=== PATIENT | female | born 1965 | race Caucasian/White ===

== ENCOUNTER 2017-06-19 15:44 | Emergency (ER) | payer OTHER ==
[2017-06-19 15:50] VITALS: BP 132/78; PULSE 67; TEMP 97.8; BMI 24.0
[2017-06-19] MEDS ORDERED: LIDOCAINE HCL 1%, 10 MG/ML (20ML VIAL) ONE (16:35)
[2017-06-19] MEDS ORDERED: DIPHTH,PERTUSS(ACELL),TET 0.5 ML DISP.SYRIN IM ONE (16:54)
--- NOTE | 2017-06-19 16:55 | PDOC ---
History of Present Illness - General History Source: Patient Exam Limitations: No Limitations - History of Present Illness Initial Comments: 06/19/17 17:03 The patient is a 52 year old female, with a significant past medical history of black mold exposure (patient reports she is currently following with a neurologist), who presents to the emergency department with, a laceration on the scalp s/p fall this morning. The patient reports she was sitting down at the kitchen table having coffee when she had a dizzy spell and after bending over fell onto the floor and hit her head. She denies diaphoresis, palpitations or chest pain before falling. The patient reports that after she fell she may have loss consciousness for a few seconds but is unsure. The patient reports her daughter looked at her scalp and advised her to come to the ED for stitches. The patient reports taking Advil for the pain with mild relief. She denies neck or back pain. She denies numbness, tingling or loss of sensation. She denies recent fevers, or chills. She denies recent nausea, vomit, diarrhea or constipation. She denies recent dysuria, frequency, urgency or hematuria. She denies recent chest pain or shortness of breath. Allergies: NKA Past surgical history: None reported. Social history: Nonsmoker. Denies EtOH use and recreational drug use. <Zay Martinez - Last Filed: 06/19/17 16:57> - History of Present Illness Initial Comments: 06/19/17 17:23 Physical exam: Alert and oriented well-developed well-nourished no acute distress cheerful and cooperative Afebrile, vital signs normal Scalp laceration 3 cm in length, right parieto-occipital scalp. No swelling, visible contusion, hematoma, or drainage. Minimal point tenderness to palpation. PERRLA 4 mm, fundi benign with sharp disc margins and good central venous pulsations. ENT clear Neck without tenderness or deformity, full range of motion without pain Chest clear, full breath sounds bilaterally, no rib cage or chest wall tenderness or deformity CV regular without murmur rub or gallop pulses full and symmetric no JVD or edema Abdomen benign Spine and pelvis no trauma Extremities no visible or palpable trauma Neurological C2 to 12 intact. Strength full and symmetric. No focal sensory or motor deficits. Gait stable and unimpaired. Cerebellum intact. Impression: Superficial scalp laceration, no evidence of significant head injury , no evidence of cardiac or neurological impairment. Most likely vasovagal episode Plan: Observe, repair of laceration, and close follow-up. <TaraPeggyMahdaviBarak Sonya - Last Filed: 06/19/17 17:28> - General Chief Complaint: Injury Stated Complaint: FALL, HEAD INJURY Time Seen by Provider: 06/19/17 16:03 Past History <Zay Martinez - Last Filed: 06/19/17 16:57> - Past Medical History COPD: No - Suicide/Smoking/Psychosocial Hx Smoking History: Never smoked Hx Alcohol Use: No Drug/Substance Use Hx: No <Barak Lozada - Last Filed: 06/19/17 17:28> - Past Medical History Allergies/Adverse Reactions: Allergies Allergy/AdvReac Type Severity Reaction Status Date / Time No Known Allergies Allergy Verified 06/19/17 15:45 Home Medications: Ambulatory Orders Ibuprofen [Advil -] 400 mg PO ASDIR PRN 06/19/17 Review of Systems - Review of Systems Comments:: 06/19/17 17:03 CONSTITUTIONAL: Absent: fever, chills, diaphoresis, generalized weakness, malaise, loss of appetite HEENT: Absent: rhinorrhea, nasal congestion, throat pain, throat swelling, difficulty swallowing, mouth swelling, ear pain, eye pain, visual Changes CARDIOVASCULAR: Absent: chest pain, syncope, palpitations, irregular heart rate, lightheadedness , peripheral edema RESPIRATORY: Absent: cough, shortness of breath, dyspnea with exertion, orthopnea, wheezing, stridor, hemoptysis GASTROINTESTINAL: Absent: abdominal pain, abdominal distension, nausea, vomiting, diarrhea, constipation, melena, hematochezia GENITOURINARY: Absent: dysuria, frequency, urgency, hesitancy, hematuria, flank pain, genital pain MUSCULOSKELETAL: Absent: myalgia, arthralgia, joint swelling SKIN: Absent: rash, itching, pallor HEMATOLOGIC/IMMUNOLOGIC: Absent: easy bleeding, easy bruising, lymphadenopathy, frequent infections ENDOCRINE: Absent: unexplained weight gain, unexplained weight loss, heat intolerance, cold intolerance NEUROLOGIC: Present: +Dizziness. Absent: headache, focal weakness or paresthesias, unsteady gait, seizure, mental status changes, bladder or bowel incontinence PSYCHIATRIC: Absent: anxiety, depression, suicidal or homicidal ideation, hallucinations. <Zya Martinez - Last Filed: 06/19/17 16:57> *Physical Exam - Vital Signs Last Vital Signs Temp Pulse Resp BP Pulse Ox 97.8 F 67 18 132/78 97 06/19/17 15:45 06/19/17 15:45 06/19/17 15:45 06/19/17 15:45 06/19/17 15:45 <Zay Martinez - Last Filed: 06/19/17 16:57> - Vital Signs Last Vital Signs Temp Pulse Resp BP Pulse Ox 97.8 F 67 18 132/78 97 06/19/17 15:45 06/19/17 15:45 06/19/17 15:45 06/19/17 15:45 06/19/17 15:45 <Barak Lozada - Last Filed: 06/19/17 17:28> Medical Decision Making - Medical Decision Making 06/19/17 17:26 Patient is neurological exam is intact and most likely experienced a vasovagal episode, with a scalp laceration and minor head injury due to a fall. Procedure note: Repair of laceration scalp Wound was prepped with Betadine and scrubbed with normal saline. Local anesthesia 1% lidocaine plain Wound explored, found to be superficial, no injury to the skull Scrubbed and irrigated thoroughly with normal saline Skin edges closely approximated with skin deshawn, could result. No further bleeding or bruising Wound care discussed. Follow up with neurologist. Return to Hospital if there are any further symptoms. Wound care instructions and head injury instructions were furnished. Patient fully ambulatory, neurologically intact, and in no pain or other distress upon discharge. <Barak Lozada - Last Filed: 06/19/17 17:28> *DC/Admit/Observation/Transfer - Attestations Scribe Attestion: 06/19/17 17:04 Documentation prepared by Zay Martinez, acting as medical records field technician for Barak Lozada MD. <Zay Martinez - Last Filed: 06/19/17 16:57> - Discharge Dispostion Admit: No <Barak Lozada - Last Filed: 06/19/17 17:28> Diagnosis at time of Disposition: Vasovagal syncope Scalp laceration Qualifiers: Encounter type: initial encounter Qualified Code(s): S01.01XA - Laceration without foreign body of scalp, initial encounter - Discharge Dispostion Disposition: HOME Condition at time of disposition: Improved - Patient Instructions Printed Discharge Instructions: DI for Syncope in Adults (Fainting), DI for Laceration Repair -- Deshawn, DI for Closed Head Injury Additional Instructions: Keep clean and dry. Return for wound check if there is any sign of infection Return for staple removal 1 week.
== END 2017-06-19 17:10 | disposition home or self-care (01) ==
LOC: FER 15:44
PROC: 0HQ0XZZ Repair Scalp Skin, External Approach (ICD-10-PCS; principal; 2017-06-19)
PROC: 3E0234Z Introduction of Serum, Toxoid and Vaccine into Muscle, Percutaneous Approach (ICD-10-PCS; 2017-06-19)
DX: S01.01XA Laceration without foreign body of scalp, initial encounter (principal); R42 Dizziness and giddiness; W18.39XA Other fall on same level, initial encounter; Y93.89 Activity, other specified; Y92.9 Unspecified place or not applicable
CPT/HCPCS: 90715; 99283-25

== ENCOUNTER 2017-06-30 14:10 | Emergency (ER) | payer OTHER ==
[2017-06-30 14:14] VITALS: BP 127/81; PULSE 81; TEMP 98.1; BMI 25.7
--- NOTE | 2017-06-30 14:17 | PDOC ---
Suture Removal/Wound Check HPI - History of Present Illness History Source: Yes: Patient (The patient is a 52 year old female, with a significant past medical history of black mold exposure, who presents to the emergency department for baylee removal. The patient reports she visited [facility] approx. 11 days ago s/p fall and received 5 baylee for a scalp laceration. The patient denies any recent fever, chills, headache or dizziness. She denies any recent nausea, vomiting, constipation or diarrhea. She denies any recent chest pain or shortness of breath. Allergies: NKA) <Zay Martinez - Last Filed: 06/30/17 14:33> - History of Present Illness History Source: Yes: Patient Exam Limitations: Yes: No Limitations <Martin Lott - Last Filed: 06/30/17 14:42> - History of Present Illness Chief Complaint: Suture/Staple Removal(Here) Stated Complaint: staple removal Time Seen by Provider: 06/30/17 14:14 Past History <Zay Martinez - Last Filed: 06/30/17 14:33> - Past Medical History COPD: No DVT: No - Suicide/Smoking/Psychosocial Hx Smoking History: Current every day smoker Number of Cigarettes Smoked Daily: 5 Information on smoking cessation initiated: Yes 'Breaking Loose' booklet given: 06/30/17 Hx Alcohol Use: No Drug/Substance Use Hx: No Substance Use Type: None <Martin Lott - Last Filed: 06/30/17 14:42> - Past Medical History Allergies/Adverse Reactions: Allergies Allergy/AdvReac Type Severity Reaction Status Date / Time No Known Allergies Allergy Verified 06/30/17 14:14 Home Medications: Ambulatory Orders Bupropion HCl [Wellbutrin Xl] 300 mg PO DAILY 06/30/17 Escitalopram Oxalate [Lexapro -] 30 mg PO DAILY 06/30/17 Suture Removal/Wound Check PE - Physical Exam Comments: 06/30/17 14:30 GENERAL: Awake, alert, and fully oriented, in no acute distress HEAD: +5 sutures right parietal. Clean, dry and intact well approximated. No signs of infection. LUNGS: Breath sounds equal, clear to auscultation bilaterally. No wheezes, and no crackles HEART: Regular rate and rhythm, normal S1 and S2, no murmurs, rubs or gallops ABDOMEN: Soft, nontender, normoactive bowel sounds. No guarding, no rebound. No masses EXTREMITIES: Normal range of motion, no edema. No clubbing or cyanosis. No cords, erythema, or tenderness NEUROLOGICAL: Cranial nerves II through XII grossly intact. Normal speech, normal gait SKIN: Warm, Dry, normal turgor, no rashes or lesions noted. <Zay Martinez - Last Filed: 06/30/17 14:33> *Review of Systems - Review of Systems Comments:: 06/30/17 14:34 GENERAL/CONSTITUTIONAL: No fever or chills. No weakness. HEAD, EYES, EARS, NOSE AND THROAT: No change in vision. No ear pain or discharge. No sore throat. CARDIOVASCULAR: No chest pain or shortness of breath. RESPIRATORY: No cough, wheezing, or hemoptysis. GASTROINTESTINAL: No nausea, vomiting, diarrhea or constipation. GENITOURINARY: No dysuria, frequency, or change in urination. MUSCULOSKELETAL: No joint or muscle swelling or pain. No neck or back pain. SKIN: No rash NEUROLOGIC: No headache, vertigo, loss of consciousness, or change in strength/ sensation. ENDOCRINE: No increased thirst. No abnormal weight change. HEMATOLOGIC/LYMPHATIC: No anemia, easy bleeding, or history of blood clots. ALLERGIC/IMMUNOLOGIC: No hives or skin allergy. <Zay Martinez - Last Filed: 06/30/17 14:33> Procedures - Consent Consent obtained: Verbal, From Patient - Additional Procedures Progress: 06/30/17 14:17 5 baylee removed <Martin Lott - Last Filed: 06/30/17 14:42> Medical Decision Making - Medical Decision Making 06/30/17 14:15 A portion of this note was documented by scribe services under my direction. I have reviewed the details of the note, within reason, and agree with the documentation with the following case summary and management plan written by me. Patient treated in the ED. Nursing notes are reviewed and incorporated into the medical decision-making. Vital signs reviewed. Vital Signs Temp Pulse Resp BP Pulse Ox 98.1 F 81 17 127/81 100 06/30/17 14:11 06/30/17 14:11 06/30/17 14:11 06/30/17 14:11 06/30/17 14:11 52-year-old female returns to have 5 baylee removed. Patient was here June for dizziness episode. She had no symptoms or complaints since her visit. Requesting to have baylee removed. There is no sign of infection. 5 baylee removed successfully without complications. I discussed the physical exam findings, ancillary test results and final diagnoses with the patient. I answered all of the patient's questions. The patient was satisfied with the care received and felt comfortable with the discharge plan and treatment plan. The patient will call their primary care physician within 24 hours to arrange follow-up and will return to the Emergency Department with any new, persistant or worsening symptoms. <Martin Lott - Last Filed: 06/30/17 14:42> *DC/Admit/Observation/Transfer - Attestations Scribe Attestion: 06/30/17 14:34 Documentation prepared by Zay Martinez, acting as front office medical assistant for Martin Lott MD. <Zay Martinez - Last Filed: 06/30/17 14:33> - Discharge Dispostion Admit: No <Martin Lott - Last Filed: 06/30/17 14:42> Diagnosis at time of Disposition: Removal of baylee - Discharge Dispostion Disposition: HOME Condition at time of disposition: Good - Patient Instructions Additional Instructions: You have had 5 baylee successfully removed. Follow up with your doctor.
== END 2017-06-30 14:39 | disposition home or self-care (01) ==
LOC: FER 14:10
DX: Z48.02 Encounter for removal of sutures (principal)
CPT/HCPCS: 99281-25